=== PATIENT | male | born 1980 | race African-American/Black ===

== ENCOUNTER 2024-12-04 08:09 | Emergency (ER) | payer MEDICAID ==
[~2024-12-04] VITALS: Ht 180.3 cm; Wt 90.0 kg
[2024-12-04 08:14] VITALS: O2SAT 99
[2024-12-04] MEDS: ONDANSETRON 4MG ODT PO ONE (08:28)
[2024-12-04] MEDS: FAMOTIDINE 20MG TABLET PO ONE (08:28)
[2024-12-04] MEDS: ACETAMINOPHEN 500MG TABLET PO ONE (08:28)
[2024-12-04 08:38] LABS: BASOPHILS % 0.5 % (0.0-2.0); EOSINOPHILS % 0.5 % (0.0-5.0); HEMATOCRIT. 43.4 % (42.0-52.0); HEMOGLOBIN. 14.7 g/dL (14.0-18.0); LYMPHOCYTES % 13.6 % (20.0-50.0); MEAN PLATELET VOLUME 7.9 fl (7.4-10.4); MONOCYTES % 4.6 % (2.0-8.0); NEUTROPHILS % 80.8 % (40.0-76.0); PLATELET 232 x1000/uL (130-400); RED BLOOD CELL COUNT 4.47 mill/uL (4.7-6.1); RED CELL DISTRIBUTION WIDTH 13.6 % (11.6-14.6)
[2024-12-04 08:47] LABS: INR 1.1
[2024-12-04] MEDS: SODIUM CHLORIDE 0.9% 1,000 ML IV ONE (08:51)
[2024-12-04 08:55] LABS: CREATININE 1.4 mg/dL (0.6-1.3); ETHANOL BLOOD < 10 mg/dL (<10); TROPONIN I HIGH SENSITIVITY 13 ng/L (3.0-53); UREA NITROGEN BLOOD 12 mg/dL (9-23)
[2024-12-04 08:57] LABS: ASPARTATE AMINOTRANSFERASE 41 IU/L (<34); BILIRUBIN DIRECT 0.7 mg/dL (<=3.0); BILIRUBIN TOTAL 2.1 mg/dL (0.1-1.0); PROTEIN TOTAL 7.7 g/dL (6.0-8.3)
[2024-12-04] MEDS ORDERED: PROT40 MT (12:20)
[2024-12-04 12:34] VITALS: BP 102/67; PULSE 99; RESP 20; TEMP 36.8; O2SAT 99
== END 2024-12-04 12:40 | disposition home or self-care (01) ==
LOC: ER 08:09
DX: R10.13 Epigastric pain (principal); I10 Essential (primary) hypertension; M10.9 Gout, unspecified; Z79.899 Other long term (current) drug therapy
CPT/HCPCS: 80076; 80048; 80320; 82962; 83690; 85027; 85025; 85610; 84484; 36415; 71045; 74176; 93005; 96360; 99285; Q0162; J7030; Z7610; G0480